=== PATIENT | male | born 1960 | race African-American/Black ===

== ENCOUNTER 2018-02-18 13:37 | Emergency (ER) | payer MEDICAID, MEDICARE, OTHER ==
[~2018-02-18] VITALS: Ht 170.2 cm; Wt 101.0 kg
[2018-02-18 20:37] LABS: BASOPHILS % 0.5 % (0.0-2.0); HEMATOCRIT. 43.4 % (42.0-52.0); HEMOGLOBIN. 14.3 g/dL (14.0-18.0); LYMPHOCYTES % 26.8 % (20.0-50.0); MEAN CORPUSCULAR HEMOGLOBIN 30.3 pg (28.0-32.0); MEAN CORPUSCULAR VOLUME 91.7 fL (80.0-94.0); MEAN PLATELET VOLUME 9.3 fl (7.4-10.4); MONOCYTES % 9.8 % (2.0-8.0); NEUTROPHILS % 59.9 % (40.0-76.0); PLATELET 173 x1000/uL (130-400); RED BLOOD CELL COUNT 4.74 mill/uL (4.7-6.1); RED CELL DISTRIBUTION WIDTH 13.4 % (11.6-14.6)
[2018-02-18 20:42] LABS: CHLORIDE 102 mEq/L (98-107)
[2018-02-19 01:29] VITALS: BP 128/85
== END 2018-02-19 01:30 | disposition home or self-care (01) ==
LOC: ER 18:55
DX: R07.89 Other chest pain (principal); R05 Cough; Z88.5 Allergy status to narcotic agent
CPT/HCPCS: 36415; 71045; 83880; 84484; 99284

== ENCOUNTER 2019-08-18 13:18 | Emergency (ER) | payer MEDICARE, MEDICAID ==
[~2019-08-18] VITALS: Ht 177.8 cm; Wt 99.0 kg
[2019-08-18] MEDS ORDERED: KETOROLAC 60MG/2ML VIAL IM ONE (15:00)
[2019-08-18 15:16] VITALS: BP 131/88
== END 2019-08-18 15:35 | disposition home or self-care (01) ==
LOC: ER 13:18
DX: M54.40 Lumbago with sciatica, unspecified side (principal); I10 Essential (primary) hypertension; Z76.0 Encounter for issue of repeat prescription; Z88.5 Allergy status to narcotic agent
CPT/HCPCS: 96372; 99283; J1885